=== PATIENT | female | born 1980 | race Caucasian/White ===

== ENCOUNTER 2025-04-17 16:56 | Outpatient (CLI) | payer BC, SELFPAY ==
--- NOTE | 2025-04-17 17:00 | CRLHL7_ITS ---
For Patients: As a result of the Century Cures Act, medical imaging exams and procedure reports are released immediately into your electronic medical record. You may view this report before your referring provider. If you have questions, please contact your health care provider. INDICATION: BILATERAL SCREENING MAMMOGRAM, ASYMPTOMATIC 45 Y/O FEMALE COMPARISON: 07/06/2023 TECHNIQUE: Digital mammogram in CC and MLO projections including computer-aided detection (CAD) and tomosynthesis. BREAST COMPOSITION: There are scattered areas of fibroglandular density. FINDINGS: No suspicious findings. ASSESSMENT: BI-RADS 1 Negative RECOMMENDATION: Annual screening mammogram. A lay language report of this examination will be provided to the patient. Dictated by: Farhat Dasilva MD @ 04/26/2025 13:03:21 (Electronically Signed)
== END 2025-04-17 16:57 | disposition home or self-care (01) ==
LOC: MAMMO 17:01
PROVIDERS: Visit Provider Obstetrics & Gynecology
DX: Z12.31 Encounter for screening mammogram for malignant neoplasm of breast (principal)
CPT/HCPCS: 77063; 77067

== ENCOUNTER 2025-06-06 15:24 | Outpatient (CLI) | payer BC, SELFPAY | END 2025-06-06 15:25 | disposition home or self-care (01) | PROVIDERS: PCP Internal Medicine; Visit Provider Internal Medicine | DX: R53.83 Other fatigue (principal) | CPT/HCPCS: 80053; 84443 ==

== ENCOUNTER 2025-07-13 15:12 | Outpatient (CLI) | payer BC, SELFPAY ==
--- NOTE | 2025-07-13 15:30 | CRLHL7_ITS ---
For Patients: As a result of the Century Cures Act, medical imaging exams and procedure reports are released immediately into your electronic medical record. You may view this report before your referring provider. If you have questions, please contact your health care provider. INDICATION: Neck pain. COMPARISON: 06/06/2025. TECHNIQUE: Sagittal T1, T2, and STIR sequences. Axial T2/gradient sequences. FINDINGS: Normal vertebral body facet alignment. No fractures. No vertebral body loss of height. No spondylolisthesis no ligamentous injury. C1-2: No spinal canal narrowing. C2-3, C3-4 C4-5: No spinal canal neural foraminal narrowing. C5-6: Disc degeneration and left paracentral disc protrusion and disc osteophyte complex measuring approximately 3 mm short axis. Effacement of the left ventral aspect of thecal sac. Moderate narrowing of spinal canal. Mild right and moderate severe left neural foraminal narrowing. Potential impingement of the left C6 nerve root. C6-7 C7-T1: No spinal canal or neural foraminal narrowing. IMPRESSION: 1. Normal alignment. No fractures. 2. At C5-6, left paracentral disc protrusion and disc osteophyte complex. Moderate narrowing of the spinal canal. Moderate severe narrowing of left neural foramina. 3. No spinal canal or neural foraminal narrowing at the remaining levels Dictated by Johan Bullock MD @ 07/14/2025 10:48:12 AM (Electronically Signed)
== END 2025-07-13 15:13 | disposition home or self-care (01) ==
LOC: MRI 15:13
PROVIDERS: PCP Internal Medicine; Visit Provider Internal Medicine
DX: M50.222 Other cervical disc displacement at C5-C6 level (principal)
CPT/HCPCS: 72141

== ENCOUNTER 2025-07-30 07:14 | Outpatient (CLI) | payer BC, SELFPAY ==
--- NOTE | 2025-07-30 08:28 | P.ANES_ITS ---
Anesthesia Charges Start Date/Time Anesthesia Start Date: 07/30/25 Anesthesia Start Time: 08:00 Stop Date/Time Anesthesia Stop Date: 07/30/25 Anesthesia Stop Time: 08:26 Coding CPT Codes CPT Codes: GEOFFREY LWR INTST NDSC NOS - [id number] ([id number]) P2 - PATIENT W/MILD SYST DISEASE, QK - BUTTON PUSHER 2-4 CNCRNT ANES PROC, QX - DAY CAMP UNIT LEADER SVC W/ MD MED DIRECTION
--- NOTE | 2025-07-30 08:28 | W.ANESCHARGE ---
Anesthesia Charges Start Date/Time Anesthesia Start Date: 07/30/25 Anesthesia Start Time: 08:00 Stop Date/Time Anesthesia Stop Date: 07/30/25 Anesthesia Stop Time: 08:26 Coding CPT Codes CPT Codes: GEOFFREY LWR INTST NDSC NOS - [id number] ([id number]) P2 - PATIENT W/MILD SYST DISEASE, QK - SYRUP FILTERER 2-4 CNCRNT ANES PROC, QX - WATER FITNESS INSTRUCTOR SVC W/ MD MED DIRECTION
--- NOTE | 2025-07-30 10:44 | P.ANES_ITS ---
Anesthesia Charges Start Date/Time Anesthesia Start Date: 07/30/25 Anesthesia Start Time: 08:00 Stop Date/Time Anesthesia Stop Date: 07/30/25 Anesthesia Stop Time: 08:26 Coding CPT Codes CPT Codes: GEOFFREY LWR INTST NDSC NOS - [id number] ([id number]) P2 - PATIENT W/MILD SYST DISEASE, QK - CLINICAL NUTRITIONIST 2-4 CNCRNT ANES PROC, QX - LITERARY WRITER SVC W/ MD MED DIRECTION
--- NOTE | 2025-07-30 10:44 | W.ANESCHARGE ---
Anesthesia Charges Start Date/Time Anesthesia Start Date: 07/30/25 Anesthesia Start Time: 08:00 Stop Date/Time Anesthesia Stop Date: 07/30/25 Anesthesia Stop Time: 08:26 Coding CPT Codes CPT Codes: GEOFFREY LWR INTST NDSC NOS - [id number] ([id number]) P2 - PATIENT W/MILD SYST DISEASE, QK - HR ADVISOR 2-4 CNCRNT ANES PROC, QX - WEED CONTROLLER SVC W/ MD MED DIRECTION
== END 2025-07-30 07:15 | disposition home or self-care (01) ==
LOC: OP CLINIC 07:16
PROVIDERS: PCP Internal Medicine; Visit Provider Internal Medicine
DX: Z12.11 Encounter for screening for malignant neoplasm of colon (principal); D12.2 Benign neoplasm of ascending colon; D12.8 Benign neoplasm of rectum
CPT/HCPCS: 00811; 00812; 45380; J2704